=== PATIENT | male | born 1980 | race Caucasian/White ===

== ENCOUNTER 2017-05-12 09:39 | Day surgery (SDC) | payer MEDICARE, BC, OTHER ==
--- NOTE | ~2017-05-12 | OP ---
Record Of Operation [facility] [address] [place] [address] NAME: KARELY ADNIEL : 80 STATUS : [place] [facility] [place] [id number] AGE: 36 ADM/REG DATE : 05/12/17 MR#: [id number] REPORT SERV DATE: 05/12/17 DICTATED BY: JOVANNA MCCRAY DATE: 05/12/17 REPORT STATUS : Draft TRANSCRIBED BY: MODL DATE: 05/12/17 DATE OF PROCEDURE: 05/12/2017 PROCEDURE: Removal of gastrostomy tube, replacement of gastrostomy tube without sedation. The purpose of the procedure was reviewed with the patient's mother at bedside, to replace the indwelling gastrostomy tube. The decision making took place prior to the procedure to evaluate the best tube for this young man as they have a preferred one, which is short profile but with the bumper somewhat away from the skin. For this reason, an AMT MiniONE 18 Khmer 3.4 cm replacement tube was selected. This was placed through the tract without difficulty. The internal bolster was released without difficulty. Gastric contents were immediately noted exuding through the catheter, which was closed. The wound was cleaned. There was no drainage around the gastrostomy tube. The patient tolerated the procedure well. There were no immediate complications. IMPRESSION: Status post gastrostomy replacement. RECOMMENDATION: 1. Prescription given for 18-Khmer Nino catheter to keep on hand should this tube fall out. 2. The patient's mother will assess performance of the tube with regard to desired outcomes, with plans for ordering replacement depending upon this decision making. LINDA/RANDA Jovanna Mccray M.D. / [id number] CC: Celina Kuhn M.D.
== END 2017-05-12 23:59 | disposition home health service (06) ==
LOC: DMU 09:39
PROVIDERS: Internal Medicine Gastroenterology
PROC: 0D20XUZ Change Feeding Device in Upper Intestinal Tract, External Approach (ICD-10-PCS; principal; 2017-05-12 11:00)
DX: Z43.1 Encounter for attention to gastrostomy (principal)